=== PATIENT | male | born 2000 | race Hispanic/Latino ===

== ENCOUNTER 2021-07-19 23:11 | Emergency (ER) | payer SELFPAY ==
[2021-07-19] MEDS ORDERED: Ondansetron ODT 4 MG TAB ONE (23:40)
== END 2021-07-19 23:40 | disposition home or self-care (01) ==
LOC: CSHERS 23:11
DX: T40.5X1A Poisoning by cocaine, accidental (unintentional), initial encounter (principal); R06.02 Shortness of breath; F17.210 Nicotine dependence, cigarettes, uncomplicated
CPT/HCPCS: 99284; Q0162

== ENCOUNTER 2022-09-02 06:19 | Emergency (ER) | payer SELFPAY ==
[2022-09-02] MEDS ORDERED: Acetaminophen/Codeine 30-300mg Tablet ONE (08:07)
== END 2022-09-02 08:10 | disposition home or self-care (01) ==
LOC: CSHERS 06:19
DX: N50.811 Right testicular pain (principal); N50.812 Left testicular pain; Z87.891 Personal history of nicotine dependence
CPT/HCPCS: 76870; 93976

== ENCOUNTER 2023-07-21 03:50 | Emergency (ER) | payer SELFPAY ==
[2023-07-21] MEDS ORDERED: Lidocaine 1% PF 5 ML VIAL ONE (05:00)
[2023-07-21] MEDS ORDERED: Boostrix 0.5 ML (Tdap) VIAL (>/=7 yrs of age) ONE (05:19)
== END 2023-07-21 07:03 | disposition home or self-care (01) ==
LOC: CSHERS 03:50
DX: S01.312A Laceration without foreign body of left ear, initial encounter (principal); Z87.891 Personal history of nicotine dependence; Z23 Encounter for immunization; W26.8XXA Contact with other sharp object(s), not elsewhere classified, initial encounter
CPT/HCPCS: 12011; 90471; 90715

== ENCOUNTER 2024-12-09 06:23 | Observation (INO) | payer SELFPAY ==
[2024-12-09 07:44] VITALS: BMI 31.4
[2024-12-09] MEDS ORDERED: Lidocaine 1% PF 5 ML VIAL ONE (12:36)
[2024-12-09] MEDS ORDERED: PROPOFOL 0 ML ONE (12:36)
[2024-12-09] MEDS ORDERED: Rocuronium Bromide 10 MG/ML (10ML VIAL) ONE ×2 (12:36→13:30)
[2024-12-09] MEDS ORDERED: HYDROcodone/Acetaminophen 10/325 mg Tablet PO PRN (13:10)
[2024-12-09] MEDS ORDERED: Dextrose 50% Abboject 50 ML SYRINGE SLOW IVP PRN (13:10)
[2024-12-09] MEDS ORDERED: Ondansetron PF 4 MG/2 ML Vial IVP PRN (13:10)
[2024-12-09] MEDS ORDERED: Glucagon 1 MG/ML KIT IM PRN (13:10)
[2024-12-09] MEDS ORDERED: Bupivacaine/Epinephrine 0.25% 30 ML VIAL ONE (13:20)
[2024-12-09] MEDS ORDERED: CEFAZOLIN 2 GM VIAL ONE (13:20)
[2024-12-09] MEDS ORDERED: Famotidine/PF 20 mg/2ml Vial ONE (13:26)
[2024-12-09] MEDS ORDERED: SUGAMMADEX SODIUM 200 MG/2 ML VIAL ONE (13:30)
[2024-12-09] MEDS ORDERED: PROPOFOL 40 ML ONE (13:30)
[2024-12-09] MEDS ORDERED: Bupivacaine HCl 0.5%/Epinephrine 1:200,000/PF 30 ml Vial ONE (13:58)
[2024-12-09] MEDS ORDERED: HYDROmorphone 0.5 MG/0.5 ML SYR SLOW IVP PRN (14:41)
[2024-12-09] MEDS ORDERED: Ketorolac Tromethamine 30 MG (1 mL) VIAL ONE (15:06)
[2024-12-09] MEDS: D5 1/2 NS w/20 mEq KCL 1,000 ML IV SCH (15:43)
[2024-12-09] MEDS: Ketorolac Tromethamine 30 MG (1 mL) VIAL IVP SCH (18:02)
[2024-12-09 22:37] VITALS: TEMP 98
[2024-12-09 23:26] VITALS: BP 113/59
== END 2024-12-10 00:18 | disposition home or self-care (01) ==
LOC: CSHTELE 07:04
PROVIDERS: ADMIT Surgery; ATTEND Surgery
PROC: 0DTJ4ZZ Resection of Appendix, Percutaneous Endoscopic Approach (ICD-10-PCS; principal; 2024-12-09)
DX: K35.80 Unspecified acute appendicitis (principal)
CPT/HCPCS: 88304; A4649; J1885; J2704; J3010; J3480